=== PATIENT | female | born 1995 | race Caucasian/White ===

== ENCOUNTER 2017-01-21 16:24 | Emergency (ER) | payer OTHER ==
[2017-01-21 16:31] VITALS: BP 120/51; PULSE 79; TEMP 98.3; BMI 38.7
--- NOTE | 2017-01-21 17:51 | PDOC ---
History of Present Illness - General Chief Complaint: Pain Stated Complaint: LT BREAST PAIN Time Seen by Provider: 01/21/17 17:17 History Source: Patient Exam Limitations: No Limitations - History of Present Illness Initial Comments: 01/21/17 17:45 21 yr female with c/o left breast pain for one week. Pt states she lifts heavy objects at work and may have pulled a muscle. Pt denies fever or chills no cough. Past History - Past Medical History Allergies/Adverse Reactions: Allergies Allergy/AdvReac Type Severity Reaction Status Date / Time apple Allergy Swelling Verified 01/21/17 16:31 peach Allergy Itching Verified 01/21/17 16:32 strawberry Allergy Itching Verified 01/21/17 16:31 Home Medications: Ambulatory Orders Albuterol Sulfate Inhaler - [Ventolin HFA Inhaler -] 1 - 2 inh PO Q4H PRN Acetaminophen [Tylenol] 650 mg PO Q4H PRN #20 tablet 12/07/15 Fluticasone Propionate [Flovent Diskus] 100 mcg IH BID 12/07/15 Levothyroxine [Synthroid -] 112 mcg PO DAILY 12/07/15 Ibuprofen 600 mg PO TID PRN #21 tablet 01/21/17 Asthma: Yes Thyroid Disease: Yes (hypothyroid) - Surgical History Cholecystectomy: Yes - Reproductive History (#): 0 Para: 1 Cervical CA: No Dysfunctional Uterine Bleeding: No Ectopic : No Endometrial CA: No Polycystic Ovaries: No Therapeutic (s) & number: No Tubal Ligation: No - Immunization History Immunization Up to Date: Yes - Psycho/Social/Smoking Cessation Hx Anxiety: No Suicidal Ideation: No Smoking History: Current some day smoker Have you smoked in the past 12 months: No Number of Cigarettes Smoked Daily: 4 Information on smoking cessation initiated: No Hx Alcohol Use: Yes (social) Drug/Substance Use Hx: No Substance Use Type: None *Physical Exam - Vital Signs Last Vital Signs Temp Pulse Resp BP Pulse Ox 98.3 F 79 20 120/51 98 01/21/17 16:28 01/21/17 16:28 01/21/17 16:28 01/21/17 16:28 01/21/17 16:28 - Physical Exam General Appearance: Yes: Nourished, Appropriately Dressed HEENT: positive: EOMI, VIRAJ, TMs Normal, Pharynx Normal Neck: positive: Supple. negative: Lymphadenopathy (R), Lymphadenopathy (L) Respiratory/Chest: positive: Lungs Clear, Normal Breath Sounds, Other (breasts bilaterally without lumps, no redness no skin dimping, pt has pain reproducable with left breast pulled over chest wall , no [place] nodes). negative: Chest Tender Cardiovascular: positive: Regular Rhythm, Regular Rate Gastrointestinal/Abdominal: positive: Normal Bowel Sounds, Soft Musculoskeletal: positive: Normal Inspection Extremity: positive: Normal Inspection, Normal Range of Motion Integumentary: positive: Normal Color, Dry, Warm Neurologic: positive: Fully Oriented, Alert, Normal Mood/Affect, Normal Response , Motor Strength 12/26 Medical Decision Making - Medical Decision Making 01/21/17 17:47 cc: left breast pain for one week pain from the outer area of breast tissue under the axila, reproduced when the breast tissue is pulled and palpated, no palpable lump no fever no redness or nipple discharge will r/o and give motrin for pain follow up with [facility] *DC/Admit/Observation/Transfer Diagnosis at time of Disposition: Breast pain, left - Discharge Dispostion Disposition: HOME Condition at time of disposition: Good - Prescriptions Prescriptions: Ibuprofen 600 mg PO TID PRN #21 tablet PRN Reason: Pain - Patient Instructions Additional Instructions: please follow with your health and safety specialist call tomorrow to make a follow up appointment apply warm compresses to the areas of pain every 3-4hrs for 20 minutes take motrin for pain as needed 600mg every 6hrs
[2017-01-21] MEDS ORDERED: IBUPROFEN 600 MG TABLET (FP) PO ONE ×2 (18:28→18:34)
== END 2017-01-21 18:48 | disposition home or self-care (01) ==
LOC: JERFT 16:24
DX: N64.4 Mastodynia (principal); F17.210 Nicotine dependence, cigarettes, uncomplicated
CPT/HCPCS: 84703; 99281-25

== ENCOUNTER 2022-09-22 16:28 | Emergency (ER) | payer OTHER ==
[2022-09-22 16:53] VITALS: BP 130/98; PULSE 82; RESP 17; TEMP 97.1; BMI 45.1
== END 2022-09-22 18:46 | disposition home or self-care (01) ==
LOC: JERFT 16:28
DX: S99.191A Other physeal fracture of right metatarsal, initial encounter for closed fracture (principal); X50.9XXA Other and unspecified overexertion or strenuous movements or postures, initial encounter
CPT/HCPCS: 73610-TC-RT-FY; 73630-TC-RT-FY; 99283-25